=== PATIENT | male | born 1975 | race Caucasian/White ===

== ENCOUNTER 2022-01-30 15:53 | Emergency (ER) | payer MEDICAID ==
[~2022-01-30] VITALS: Ht 165.1 cm; Wt 86.4 kg
[2022-01-30 18:41] VITALS: BP 146/82
[2022-01-30] MEDS ORDERED: PERTUSS(ACELL),DIPH,TET VAC/PF 0.5 ML SYRINGE IM. ONE (19:00)
== END 2022-01-30 19:07 | disposition home or self-care (01) ==
LOC: EMS 15:58
DX: S41.151A Open bite of right upper arm, initial encounter (principal); S81.851A Open bite, right lower leg, initial encounter; E11.9 Type 2 diabetes mellitus without complications; W54.0XXA Bitten by dog, initial encounter; Y93.89 Activity, other specified; Y92.89 Other specified places as the place of occurrence of the external cause; Y99.8 Other external cause status
CPT/HCPCS: 90471; 90715; 99283